=== PATIENT | male | born 1950 | race African-American/Black ===

== ENCOUNTER 2020-03-09 22:27 | Emergency (ER) | payer OTHER ==
[~2020-03-09] VITALS: Ht 172.7 cm; Wt 75.0 kg
[2020-03-09 23:32] LABS: BASOPHILS % 0.5 % (0.0-2.0); EOSINOPHILS % 1.1 % (0.0-5.0); HEMATOCRIT. 40.1 % (42.0-52.0); HEMOGLOBIN. 13.5 g/dL (14.0-18.0); LYMPHOCYTES % 33.4 % (20.0-50.0); MEAN CORPUSCULAR HEMOGLOBIN 30.2 pg (28.0-32.0); MEAN CORPUSCULAR VOLUME 89.5 fL (80.0-94.0); MEAN PLATELET VOLUME 10.1 fl (7.4-10.4); MONOCYTES % 12.3 % (2.0-8.0); NEUTROPHILS % 52.7 % (40.0-76.0); PLATELET 108 x1000/uL (130-400); RED BLOOD CELL COUNT 4.48 mill/uL (4.7-6.1); RED CELL DISTRIBUTION WIDTH 13.6 % (11.6-14.6)
[2020-03-09 23:36] LABS: CHLORIDE 105 mEq/L (98-107)
[2020-03-09] MEDS ORDERED: DEXTROSE 50% WATER 50ML SYRINGE IV ONE (23:56)
[2020-03-10] MEDS ORDERED: DEXT 5%/0.45% NACL KCL 40MEQ/L 1,000 ML IV ONE
[2020-03-10] MEDS ORDERED: DEXTROSE 50% WATER 50ML SYRINGE IV ONE
[2020-03-10] MEDS ORDERED: POTASSIUM CHLORIDE INJ 40 MEQ in DEXT 5% WATER 250 ML IV ONE (02:15)
[2020-03-10] MEDS ORDERED: POTASSIUM CHLORIDE 20MEQ TABLET SR PO ONE (02:15)
[2020-03-10 05:35] VITALS: BP 151/64
== END 2020-03-10 06:19 | disposition short-term general hospital (02) ==
LOC: ER 22:27
DX: E11.649 Type 2 diabetes mellitus with hypoglycemia without coma (principal); E87.5 Hyperkalemia
CPT/HCPCS: 36415; 71045; 80053; 82962; 83735; 83880; 84484; 85025; 93005; 96365; 96366; 96375; 99285; J3480; J7060